=== PATIENT | male | born 1955 | race Caucasian/White ===

== ENCOUNTER 2019-07-19 20:47 | Observation (INO) ==
[2019-07-19] MEDS ORDERED: HYDROmorphone INJ 1 MG/ML SYRINGE IV STA ×2 (21:05→22:25)
[2019-07-19] MEDS ORDERED: LORazepam 1 MG/2 ML VIAL IV STA (21:05)
[2019-07-19 21:17] LABS: Basophils # (auto) 0.02 K/uL (0-0.2); Basophils % (auto) 0.1 %; Eosinophils # (auto) 0.06 K/uL (0-0.5); Eosinophils % (auto) 0.3 %; Hematocrit (blood only) 40.5 % (42-52); Hemoglobin 13.5 g/dL (14.0-18.0); Immature Granulocytes # (auto) 0.24 K/uL (0.00-0.02); Immature Granulocytes % (auto) 1.4 %; Lymphocytes # (auto) 1.86 K/uL (1.2-3.4); Lymphocytes % (auto) 10.6 %; Mean Corpuscular Hemoglobin 32.1 pg (25-34); Mean Corpuscular Hgb Conc 33.3 g/dL (32-36); Mean Corpuscular Volume 96.4 fL (80-100); Mean Platelet Volume 8.7 fL (7.4-10.4); Monocytes # (auto) 2.29 K/uL (0.11-0.59); Neutrophils # (auto) 13.16 K/uL (1.4-6.5); Neutrophils % (auto) 74.6 %; Platelet Count 296 K/uL (130-400); RDW Coefficient of Variation 13.7 % (11.5-14.5); RDW Standard Deviation 47.9 fL (36.4-46.3); White Blood Count 17.63 K/uL (4.8-10.8)
[2019-07-19 21:32] LABS: BUN Creatinine Ratio 16.9 (10-20); Calcium 9.3 mg/dl (8.5-10.1); Creatinine Clr Calc Pharmacy 64.8 ml/min; Est GFR (African American) 62.8; Est GFR (Non-African American) 54.2; Magnesium 1.9 mg/dl (1.8-2.4); Potassium 3.5 mmol/L (3.5-5.1)
--- NOTE | 2019-07-19 21:49 | XRay Report ---
XR hip LT 2V w pelvis CLINICAL HISTORY: hip/inguinal pain COMPARISON: None. DISCUSSION: No fractures or subluxations are visualized. There are no erosive or destructive changes. There are minor degenerative changes. There is a femoral head neck lump. This is a nonspecific findi ng which has been reported in femoral acetabular impingement syndrome IMPRESSION: 1. Mild degenerative change 2. No fractures identified Electronically signed by: Cj Higgins M.D. 07/19/2019 9:48 PM
[2019-07-19 22:16] LABS: Lyme Ab IgG w/WB Rflx Negative (Negative)
[2019-07-19] MEDS ORDERED: LORazepam 0.5 MG/1 ML VIAL IV STA (22:25)
[2019-07-19 22:26] LABS: Lyme Ab IgM w/WB Rflx Positive (Negative)
--- NOTE | 2019-07-20 00:07 | Emergency Department Note ---
Entered by Yamileth Gee acting as a scribe for Reginaldo Soto M.D. History of Present Illness General Chief complaint: Hip Pain Stated complaint: HIP PAIN, LEFT Time Seen by Provider: 07/19/19 20:54 Source: patient History of Present Illness Provider complaint: hip pain Onset (ago): hour(s) (this morning) Location: hip and left Radiation: extremity (back of left extremity) Pain Consistency: + constant Maximum Pain Intensity: 10 Relieved By: not by medication Associated symptoms: + other (-numbness/tingling, -abdominal pain, -testicular pain) The patient is a 63 year old male who presents to the Emergency Room with complaints of constant left hip pain that started this morning. The patient r eports that he has had a recent spasm in his right hip where they gave him a steroid injection several days ago. He mentions that he had a recent spasm in his right shoulder where he received a steroid injection. He reports that his left hip has worsened in pain since this morning. He notes that the pain radiates down the back of his leg. He denies any numbness or tingling. He denies any abdominal pain. He states that he takes Oxycodone for his chronic back pain, which he took today and did not alleviate his pain. He denies any testicular pain. He states that he has a history of IBS and lumbar stenosis. He mentions that he got a tick bite in his left inner thigh which was removed on Monday. Home Medications Home Medications Medication Instructions Recorded Confirmed Type allopurinol [Zyloprim] 300 mg PO DAILY 07/19/19 07/19/19 History amlodipine [Norvasc] 10 mg PO DAILY 07/19/19 07/19/19 History atorvastatin [Lipitor] 20 mg PO DAILY 07/19/19 07/19/19 History doxycycline hyclate 100 mg PO BID 07/19/19 07/19/19 History gabapentin 300 mg PO TID 07/19/19 07/19/19 History oxycodone 10 mg PO Q4 PRN 07/19/19 07/19/19 History sildenafil [Viagra] 100 mg PO UD PRN 07/19/19 07/19/19 History sulfasalazine [Azulfidine] 1,000 mg PO AMPM 07/19/19 07/19/19 History valacyclovir [Valtrex] 500 mg PO DAILY 07/19/19 07/19/19 History zolpidem [Ambien] 10 mg PO HS 07/19/19 07/19/19 History Allergies Allergy/AdvReac Type Severity Reaction Status Date / Time ibuprofen AdvReac can not Verified 07/19/19 22:29 take because of liver Past Med/Surg History Medical History Lumbar stenosis Social History Preferred Language: [place] Citizen Feels Safe at Home: Yes Smoking Status: Former smoker Review of Systems See HPI for pertinent positives & negatives. and A total of 10 systems reviewed and were otherwise negative Physical Exam Vital Signs Vital Signs - 24 hr 07/19/19 20:49 07/19/19 23:19 07/19/19 23:30 Temperature 36.7 C Temperature Source Oral Pulse Rate 72 Pulse Rate [Right Finger] 100 H 96 H Respiratory Rate 18 18 16 Respiratory Effort / Characteristics Respiratory Depth Normal Blood Pressure 167/90 H Blood Pressure [Left Arm] 188/92 H 179/94 H Blood Pressure Mean 115 Blood Pressure Mean [Left Arm] 124 122 Blood Pressure Position [Left Arm] Sitting Pulse Oximetry 96 93 88 L Oxygen Delivery Method Room Air Room Air Room Air Sepsis Recent Fever Within 48 Hours No Sepsis New/Unexplained Change in Mental Status No Sepsis Action Taken by Nursing No Action Required 07/20/19 01:00 Temperature Temperature Source Pulse Rate Pulse Rate [Right Finger] 100 H Respiratory Rate 18 Respiratory Effort / Characteristics Non-Labored Respiratory Depth Normal Blood Pressure Blood Pressure [Left Arm] 175/90 H Blood Pressure Mean Blood Pressure Mean [Left Arm] 118 Blood Pressure Position [Left Arm] Pulse Oximetry 94 Oxygen Delivery Method Room Air Sepsis Recent Fever Within 48 Hours Sepsis New/Unexplained Change in Mental Status Sepsis Action Taken by Nursing GENERAL: Awake, alert, appears uncomfortable in bed wincing in pain HENT: Normocephalic, atraumatic. EYES: Normal conjunctiva. Sclera non-icteric. RESPIRATORY: Clear to auscultation. Normal respiratory effort. CARDIAC: Normal rate. Normal rhythm. Extremities warm and well perfused. GI: Soft, non-distended. No tenderness to palpation. No rebound or guarding. No masses. RECTAL: Deferred. MUSCULOSKELETAL: Atraumatic. Chest examination reveals no tenderness.. L inguinal tenderness LOWER EXTREMITIES: Calves are equal size bilaterally and non-tender. No edema. Significant proximal left medial tenderness and left inguinal tenderness. No erythema. Pain with passive or active ROM of L hip. No lateral tenderness. NEURO: Normal sensorium. No sensory or motor deficits noted. No facial droop. SKIN: Warm and dry. No rash or jaundice noted. Course Course 2056: The patient was evaluated in room B4B, and a complete history and physical examination were performed. 2226: I reevaluated the patient and updated him on his results, he is still uncomfortable. 0039: I reevaluated the patient and updated him. 0100: I reviewed the patient's case with Dr. Weinstein- [facility] Hospitalist. He will evaluate the patient for further management. Administered Medications Discontinued Medications Doxycycline Hyclate (Vibramycin) 100 mg PO NOW STA Stop: 07/20/19 00:35 Last Admin: 07/20/19 00:45 Dose: 100 mg Documented by: [id number] Hydromorphone HCl (Dilaudid) 1 mg IV NOW STA Stop: 07/19/19 21:06 Last Admin: 07/19/19 21:18 Dose: 1 mg Documented by: [id number] Hydromorphone HCl (Dilaudid) 1 mg IV NOW STA Stop: 07/19/19 22:26 Last Admin: 07/19/19 22:57 Dose: 1 mg Documented by: [id number] Lorazepam (Ativan) 1 mg in 2 mls @ 2 mls/min IV NOW STA Stop: 07/19/19 21:06 Last Admin: 07/19/19 21:18 Dose: 2 mls/min Documented by: [id number] Lorazepam (Ativan) 0.5 mg in 1 mls @ 1 mls/min IV NOW STA Stop: 07/19/19 22:26 Last Admin: 07/19/19 22:58 Dose: 1 mls/min Documented by: [id number] Ketorolac Tromethamine (Toradol) 15 mg IV NOW STA Stop: 07/20/19 01:23 Last Admin: 07/20/19 01:25 Dose: 15 mg Documented by: [id number] Medical Decision Making Differential Diagnosis Differential diagnosis: Etiologies such as fracture, dislocation, neurovascular compromise, compartment syndrome, soft tissue injury, as well as others were entertained Medical Records Attestation: I reviewed the patient's medical records. Home Medications Current Medication List: was personally reviewed by me Laboratory Data Attestation: I reviewed the patient's lab results. Result diagrams: 07/19/19 21:04 07/19/19 21:04 Lab Results 07/19/19 07/19/19 07/19/19 Range/Units 21:04 21:04 21:04 WBC 17.63 H (4.8-10.8) K/uL RBC 4.20 L (4.7-6.1) M/uL Hgb 13.5 L (14.0-18.0) g/dL Hct 40.5 L (42-52) % MCV 96.4 (80-100) fL MCH 32.1 (25-34) pg MCHC 33.3 (32-36) g/dL RDW Std Deviation 47.9 H (36.4-46.3) fL RDW Coeff of [place] 13.7 (11.5-14.5) % Plt Count 296 (130-400) K/uL MPV 8.7 (7.4-10.4) fL Immature Gran % (Auto) 1.4 % Neut % (Auto) 74.6 % Lymph % (Auto) 10.6 % [place] % (Auto) 13.0 % Eos % (Auto) 0.3 % Baso % (Auto) 0.1 % Immature Gran # (Auto) 0.24 H (0.00-0.02) K/uL Neut # (Auto) 13.16 H (1.4-6.5) K/uL Lymph # (Auto) 1.86 (1.2-3.4) K/uL [place] # (Auto) 2.29 H (0.11-0.59) K/uL Eos # (Auto) 0.06 (0-0.5) K/uL Baso # (Auto) 0.02 (0-0.2) K/uL ESR (0-14) mm/hr Sodium 133 L (136-145) mmol/L Potassium 3.5 (3.5-5.1) mmol/L Chloride 102 (98-107) mmol/L Carbon Dioxide 24 (21-32) mmol/L Anion Gap 8.0 (3-11) BUN 23 H (7-18) mg/dl Creatinine 1.36 (0.6-1.4) mg/dl Est Cr Clr Drug Dosing 64.8 ml/min Est GFR ( Amer) 62.8 Est GFR (Non-Af Amer) 54.2 BUN/Creatinine Ratio 16.9 (10-20) Glucose 144 H (70-99) mg/dl Calcium 9.3 (8.5-10.1) mg/dl Magnesium 1.9 (1.8-2.4) mg/dl Total Bilirubin 0.8 (0.2-1) mg/dl Direct Bilirubin 0.2 (0-0.2) mg/dl AST 15 (15-37) U/L ALT 33 (12-78) U/L Alkaline Phosphatase 74 (45-117) U/L Total Protein 7.8 (6.4-8.2) gm/dl Albumin 4.1 (3.4-5.0) gm/dl Lyme Disease IgG Ab Negative (Negative) Lyme Disease IgM Ab Positive A (Negative) 07/19/19 Range/Units 21:04 WBC (4.8-10.8) K/uL RBC (4.7-6.1) M/uL Hgb (14.0-18.0) g/dL Hct (42-52) % MCV (80-100) fL MCH (25-34) pg MCHC (32-36) g/dL RDW Std Deviation (36.4-46.3) fL RDW Coeff of [place] (11.5-14.5) % Plt Count (130-400) K/uL MPV (7.4-10.4) fL Immature Gran % (Auto) % Neut % (Auto) % Lymph % (Auto) % [place] % (Auto) % Eos % (Auto) % Baso % (Auto) % Immature Gran # (Auto) (0.00-0.02) K/uL Neut # (Auto) (1.4-6.5) K/uL Lymph # (Auto) (1.2-3.4) K/uL [place] # (Auto) (0.11-0.59) K/uL Eos # (Auto) (0-0.5) K/uL Baso # (Auto) (0-0.2) K/uL ESR 23 H (0-14) mm/hr Sodium (136-145) mmol/L Potassium (3.5-5.1) mmol/L Chloride (98-107) mmol/L Carbon Dioxide (21-32) mmol/L Anion Gap (3-11) BUN (7-18) mg/dl Creatinine (0.6-1.4) mg/dl Est Cr Clr Drug Dosing ml/min Est GFR ( Amer) Est GFR (Non-Af Amer) BUN/Creatinine Ratio (10-20) Glucose (70-99) mg/dl Calcium (8.5-10.1) mg/dl Magnesium (1.8-2.4) mg/dl Total Bilirubin (0.2-1) mg/dl Direct Bilirubin (0-0.2) mg/dl AST (15-37) U/L ALT (12-78) U/L Alkaline Phosphatase (45-117) U/L Total Protein (6.4-8.2) gm/dl Albumin (3.4-5.0) gm/dl Lyme Disease IgG Ab (Negative) Lyme Disease IgM Ab (Negative) Imaging Data Radiologist's Impression: Radiology results as stated below per my review and the radiologist's interpretation: XR hip LT 2V w pelvis CLINICAL HISTORY: hip/inguinal pain COMPARISON: None. DISCUSSION: No fractures or subluxations are visualized. There are no erosive or destructive changes. There are minor degenerative changes. There is a femoral head neck lump. This is a nonspecific finding which has been reported in femoral acetabular impingement syndrome IMPRESSION: 1. Mild degenerative change 2. No fractures identified Electronically signed by: Cj Higgins M.D. 07/19/2019 9:[address] LEFT HIP No acute fracture or dislocation. Colonic diverticula. Heterogeneous prostate. Radiologist: Stefan Clayton M.D. Study ready at 231 and initial results transmitted at [id number]. Blood Pressure Blood Pressure Findings: Elevated blood pressure Blood Pressure Disposition: further management by hospitalist ERNIE Harris Patient is a 63-year-old gentleman presenting today complaining of atraumatic left hip and groin pain. Again no trauma is reported. No fevers reported. Neurovascular intact. Patient with a history of lumbar spinal stenosis and other musculoskeletal pains presenting today with onset this morning of continuous severe left inguinal pain worsening throughout the day. A little bit of radiation to the back of his left thigh. No numbness in the left leg. Chronically on opioids regularly but pain is breaking through that now severely in the left hip but more left inguinal area. No testicular pain. No abdominal tenderness. Tenderness along the inner proximal left thigh along the inguinal ligament. No fluctuance or erythema here. Primarily receives care with doctors in [facility]. Electrolytes were checked. Family wonder if he may possibly be suffering from Lyme disease and that this was sent. It was only later they stated he is already on treatment doxycycline. Lower suspicion for intra- abdominal pathology and I doubt acute diverticulitis, appendicitis, testicular torsion, he UTI, or colitis. Patient's symptoms seem more muscular skeletal in nature. X-ray of the left hip was obtained without evidence of acute significant bony injury such as fracture dislocation. Given some Ativan and Dilaudid for symptom control initially. Laboratory studies show no significant electrolyte abnormalities. Leukocytosis of 17 is noted however the patient is on chronic steroids and recently finished a steroid burst. I doubt this represents septic joint. ESR minimally elevated. Patient again is afebrile he does not report any fevers. X-ray is noted to show no fractures and degenerative change possibly findings suggestive of a femoral acetabular impingement syndrome. Discussed with patient who on reexamination begin a return of symptoms for digital medication given. Lyme screen positive IgM. Given his concern about tick exposure will start a course of doxycycline. CT the hip was completed with out significant acute pathology noted. Reevaluated the patient and seems slightly under the effects of the narcotics. Still with s ignificant pain with range of motion unable to ambulate. Discussed with family the patient given the multiple medications were tried do not see how the patient go home at this time. Is not able to ambulate. They do also relate that the patient started doxycycline several days ago. Discussed with him options of trying to go home versus observation here for better pain control possible physical therapy or orthopedic evaluation. Again I do not see any evidence of acute intra-abdominal pathology. Palpable pulses and no signs of infection of the left lower extremity. Patient is already on a combination of Flexeril, oxycodone, gabapentin, and steroids at home. Discussed with patient and was agreeable to trial of Toradol. Discussed with the hospitalist who reviewed the case. UA/UDS ordered. Impression & Plan Left hip pain, Inability to ambulate due to hip Discharge Plan Visit Data Chief Complaint: Hip Pain Stated Complaint: HIP PAIN, LEFT ED Provider: Reginaldo Soto Discharge Problem: Left hip pain, Inability to ambulate due to hip Patient Disposition: Being Evaluated by Hospitalist Forms Stand Alone Forms: [facility] Prescriptions Prescriptions: No Action doxycycline hyclate 100 mg capsule 100 mg PO BID RF: 0 atorvastatin [Lipitor] 20 mg tablet 20 mg PO DAILY RF: 0 sulfasalazine [Azulfidine] 500 mg tablet 1,000 mg PO AMPM RF: 0 valacyclovir [Valtrex] 500 mg tablet 500 mg PO DAILY RF: 0 sildenafil [Viagra] 100 mg tablet 100 mg PO UD PRN (Reason: Sexual Activity) RF: 0 amlodipine [Norvasc] 10 mg tablet 10 mg PO DAILY RF: 0 gabapentin 300 mg capsule 300 mg PO TID RF: 0 allopurinol [Zyloprim] 300 mg tablet 300 mg PO DAILY RF: 0 zolpidem [Ambien] 10 mg tablet 10 mg PO HS RF: 0 oxycodone 10 mg tablet 10 mg PO Q4 PRN (Reason: Pain) RF: 0 Referrals Referrals: PCP,NO [Primary Care Provider] - The scribe's documentation has been prepared under my direction and personally reviewed by me in its entirety. I confirm that the note above accurately reflects all work, treatment, procedures, and medical decision making performed by me.
[2019-07-20] MEDS ORDERED: DOXYCYCLINE HYCLATE 100 MG CAP PO STA (00:34)
[2019-07-20 01:09] LABS: Albumin Level 4.1 gm/dl (3.4-5.0); Bilirubin Direct 0.2 mg/dl (0-0.2); Bilirubin,Total 0.8 mg/dl (0.2-1); Total Protein 7.8 gm/dl (6.4-8.2)
[2019-07-20] MEDS ORDERED: KETOROLAC TROMETHAMINE 15 MG/ML VIAL IV STA (01:22)
[2019-07-20 01:49] LABS: Appearance Urine Clear (Clear); Bilirubin Urine Negative (Negative); Blood Urine Negative (Negative); Color Urine Dark Yellow; Glucose Urine UA Negative (Negative); Ketones Urine Negative (Negative); Leukocyte Esterase Urine Negative (Negative); Nitrite Urine Negative (Negative); Protein Urine Negative (Negative); Specific Gravity Urine 1.019 (1.000-1.030); Urobilinogen Urine Negative (Negative)
[2019-07-20] MEDS ORDERED: METOPROLOL TARTRATE 1 MG/ML VIAL IV STA (02:01)
[2019-07-20 02:07] LABS: Amphetamines+Metham, Urine Neg (Neg); Barbiturates, Urine Neg (Neg); Benzodiazepine, Urine Neg (Neg); Cocaine, Urine Pos (Neg); MDMA (Ecstacy), Urine Neg (Neg); Methadone, Urine Neg (Neg); Opiate, Urine Pos (Neg); Phencyclidine, Urine Neg (Neg)
--- NOTE | 2019-07-20 02:11 | History & Physical Report ---
Date of Service July 20, 2019 Assessment & Plan (1) Left hip pain: Left hip and groin pain Potential causes include pain referred from lumbar disc disease, Lyme disease, possible prostatitis, nonspecific joint inflammation and others. Received 2 doses of Dilaudid 1 mg IV in ED with no improvement in symptoms. Would not give any further doses of IV narcotics. Acetaminophen 650 mg p.o. every 6 hours as needed mild pain or temperature Toradol 30 mg IV every 6 hours as needed breakthrough pain. Oxycodone 10 mg p.o. every 6 hours as needed severe pain, as per outpatient. Consult orthopedics on-call for their opinion. Present on Admission?: Yes (2) Lyme disease: Was started on doxycycline 100 mg p.o. twice daily a few days ago. Lyme testing here confirms IgM positive, with IgG negative, and Western blot will now be pending. Continue doxycycline 100 mg p.o. twice daily. Placed on ceftriaxone 2 g IV daily to cover arthritis and potential prostatitis. Add anaplasmosis testing due to severity of generalized symptoms and joint pains. Patient reports that he has live out of the [facility], and he and his have had several ticks on their body throughout the summer. Present on Admission?: Yes (3) Gout: Continue allopurinol 300 mg p.o. daily. Present on Admission?: Yes (4) Hypertension: Continue amlodipine 10 mg p.o. daily. Give Lopressor 5 mg IV x1 while in the ED. Present on Admission?: Yes (5) Radiculopathy due to disorder of intervertebral disc of lumbar spine: Patient reports history of L4/L5 degenerative disc disease and left lower extremity radiculopathy. He reports having a pending appointment with an orthopedist back home in [place]. Present on Admission?: Yes (6) Chronic pain syndrome: Continue medications as above. Present on Admission?: Yes (7) Insomnia: Continue zolpidem 10 mg p.o. at bedtime as needed Present on Admission?: Yes (8) Hyperlipidemia: Continue atorvastatin 20 mg p.o. daily Present on Admission?: Yes History of Present Illness Chief Complaint: The patient presents to the emergency department with left hip pain. Primary Care Provider: NO PCP The patient is a 63-year-old male with a past medical history including lumbar degenerative disc disease, gout, hypertension, hyperlipidemia, chronic pain syndrome and insomnia who presents to the emergency department with severe left hip pain. He reports that he has had a recent injection into his right hip which relieved the pain there, and his reports he had Flexeril injections in the bilateral upper thoracic areas that relieved that pain as well. He is traveled here from [facility] for the holidays, and this morning developed the severe left hip pain. He denies any heavy lifting or other mechanical involvements, and denies trauma. His main change activity is riding in a car from [facility] a few days ago. He does report chronic urinary frequency and dysuria over the past 3 to 4 years. Allergies Allergy/AdvReac Type Severity Reaction Status Date / Time ibuprofen AdvReac can not Verified 07/19/19 22:29 take because of liver Home Medications Home Medications Medication Instructions Recorded Confirmed Type allopurinol [Zyloprim] 300 mg PO DAILY 07/19/19 07/19/19 History amlodipine [Norvasc] 10 mg PO DAILY 07/19/19 07/19/19 History atorvastatin [Lipitor] 20 mg PO DAILY 07/19/19 07/19/19 History doxycycline hyclate 100 mg PO BID 07/19/19 07/19/19 History gabapentin 300 mg PO TID 07/19/19 07/19/19 History oxycodone 10 mg PO Q4 PRN 07/19/19 07/19/19 History sildenafil [Viagra] 100 mg PO UD PRN 07/19/19 07/19/19 History sulfasalazine [Azulfidine] 1,000 mg PO AMPM 07/19/19 07/19/19 History valacyclovir [Valtrex] 500 mg PO DAILY 07/19/19 07/19/19 History zolpidem [Ambien] 10 mg PO HS 07/19/19 07/19/19 History Past Med/Surg History Medical History Lumbar stenosis Social History Preferred Language: Romanian Feels Safe at Home: Yes Smoking Status: Former smoker Review of Systems Review of Systems: The patient denies chest pain, palpitations, shortness of breath, dyspnea on exertion, cough, lower extremity swelling, sore throat, fevers, chills, sweats, weight change, fatigue, nausea, vomiting, diarrhea , constipation, abdominal pain, pelvic pain, blood in urine or stool, dysuria, urinary frequency or urgency, lightheadedness, dizziness, headache, memory loss, loss of consciousness, rash, abnormal bruising or bleeding, or night sweats. The review of systems is otherwise negative other than for that already noted above, and at least 10 systems have been reviewed. Physical Exam Physical Exam: The patient is awake, alert and oriented 3, well developed and well nourished, normocephalic and atraumatic, lying in bed and in no acute distress. HEENT--PERRL, EOMI, mucous membranes and oropharynx normal. Neck--supple. No JVD. No bruits. Thyroid normal, trachea midline, no adenopathy. Heart--normal S1 and S2. No murmurs, rubs or gallops. Lungs--clear bilaterally, no respiratory distress, no accessory muscle use. Abdomen--normal bowel sounds and soft. Nontender. Nondistended, mildly tympanitic. No hernias or masses, no organomegaly. No reproducible pain Extremities--no cyanosis or clubbing. No edema. There are good distal pulses b/l. Dermatologic--normal skin turgor, normal color, no abnormal lymph nodes, no rash. Neurologic--cranial nerves II through XII grossly intact. Rheumatologic--limited due to pain left hip and groin. Psychiatric--normal affect. Results & Data Vital Signs (Past 12 Hours) Vital Signs Temp Pulse Pulse Resp BP BP Pulse Ox 07/20/19 02:05 104 H 175/90 H 07/20/19 01:00 100 H 18 175/90 H 94 07/19/19 23:30 96 H 16 179/94 H 88 L 07/19/19 23:19 100 H 18 188/92 H 93 07/19/19 20:49 98.1 F 72 18 167/90 H 96 Laboratory Results Laboratory Results WBC 17.63 K/uL (4.8-10.8) H 07/19/19 21:04 RBC 4.20 M/uL (4.7-6.1) L 07/19/19 21:04 Hgb 13.5 g/dL (14.0-18.0) L 07/19/19 21:04 Hct 40.5 % (42-52) L 07/19/19 21:04 MCV 96.4 fL (80-100) 07/19/19 21:04 MCH 32.1 pg (25-34) 07/19/19 21:04 MCHC 33.3 g/dL (32-36) 07/19/19 21:04 RDW Std Deviation 47.9 fL (36.4-46.3) H 07/19/19 21:04 RDW Coeff of Wayne 13.7 % (11.5-14.5) 07/19/19 21:04 Plt Count 296 K/uL (130-400) 07/19/19 21:04 MPV 8.7 fL (7.4-10.4) 07/19/19 21:04 Immature Gran % (Auto) 1.4 % 07/19/19 21:04 Neut % (Auto) 74.6 % 07/19/19 21:04 Lymph % (Auto) 10.6 % 07/19/19 21:04 Towner % (Auto) 13.0 % 07/19/19 21:04 Eos % (Auto) 0.3 % 07/19/19 21:04 Baso % (Auto) 0.1 % 07/19/19 21:04 Immature Gran # (Auto) 0.24 K/uL (0.00-0.02) H 07/19/19 21:04 Neut # (Auto) 13.16 K/uL (1.4-6.5) H 07/19/19 21:04 Lymph # (Auto) 1.86 K/uL (1.2-3.4) 07/19/19 21:04 Towner # (Auto) 2.29 K/uL (0.11-0.59) H 07/19/19 21:04 Eos # (Auto) 0.06 K/uL (0-0.5) 07/19/19 21:04 Baso # (Auto) 0.02 K/uL (0-0.2) 07/19/19 21:04 ESR 23 mm/hr (0-14) H 07/19/19 21:04 Sodium 133 mmol/L (136-145) L 07/19/19 21:04 Potassium 3.5 mmol/L (3.5-5.1) 07/19/19 21:04 Chloride 102 mmol/L (98-107) 07/19/19 21:04 Carbon Dioxide 24 mmol/L (21-32) 07/19/19 21:04 Anion Gap 8.0 (3-11) 07/19/19 21:04 BUN 23 mg/dl (7-18) H 07/19/19 21:04 Creatinine 1.36 mg/dl (0.6-1.4) 07/19/19 21:04 Est Cr Clr Drug Dosing 64.8 ml/min 07/19/19 21:04 Est GFR ( Amer) 62.8 07/19/19 21:04 Est GFR (Non-Af Amer) 54.2 07/19/19 21:04 BUN/Creatinine Ratio 16.9 (10-20) 07/19/19 21:04 Glucose 144 mg/dl (70-99) H 07/19/19 21:04 Calcium 9.3 mg/dl (8.5-10.1) 07/19/19 21:04 Magnesium 1.9 mg/dl (1.8-2.4) 07/19/19 21:04 Total Bilirubin 0.8 mg/dl (0.2-1) 07/19/19 21:04 Direct Bilirubin 0.2 mg/dl (0-0.2) 07/19/19 21:04 AST 15 U/L (15-37) 07/19/19 21:04 ALT 33 U/L (12-78) 07/19/19 21:04 Alkaline Phosphatase 74 U/L (45-117) 07/19/19 21:04 Total Protein 7.8 gm/dl (6.4-8.2) 07/19/19 21:04 Albumin 4.1 gm/dl (3.4-5.0) 07/19/19 21:04 Urine Color Dark Yellow 07/20/19 01:41 Urine Appearance Clear (Clear) 07/20/19 01:41 Urine pH 7.0 (4.5-7.5) 07/20/19 01:41 Ur Specific [place] 1.019 (1.000-1.030) 07/20/19 01:41 Urine Protein Negative (Negative) 07/20/19 01:41 Urine Glucose (UA) Negative (Negative) 07/20/19 01:41 Urine Ketones Negative (Negative) 07/20/19 01:41 Urine Blood Negative (Negative) 07/20/19 01:41 Urine Nitrite Negative (Negative) 07/20/19 01:41 Urine Bilirubin Negative (Negative) 07/20/19 01:41 Urine Urobilinogen Negative (Negative) 07/20/19 01:41 Ur Leukocyte Esterase Negative (Negative) 07/20/19 01:41 Urine Opiates Screen Pos (Neg) H 07/20/19 01:41 Ur Methadone, Qual Neg (Neg) 07/20/19 01:41 Urine Barbiturates Neg (Neg) 07/20/19 01:41 Ur Phencyclidine (PCP) Neg (Neg) 07/20/19 01:41 U Amphetamin/Meth Scrn Neg (Neg) 07/20/19 01:41 MDMA (Ecstasy) Screen Neg (Neg) 07/20/19 01:41 U Benzodiazepines Scrn Neg (Neg) 07/20/19 01:41 Ur Cocaine Metabolite Pos (Neg) H 07/20/19 01:41 U Marijuana (THC) Screen Neg (Neg) 07/20/19 01:41 Lyme Disease IgG Ab Negative (Negative) 07/19/19 21:04 Lyme Disease IgM Ab Positive (Negative) A 07/19/19 21:04 Diagnostic Findings [place] [phone] XRay Report Patient: ANANT DUNLAP Date: 07/19/19 MR#: [id number]: [address] [facility] Acct ID:[id number]: Date: [address] [place] [address] Zip: [place] [address] Age: 63Location: ED Sex: M Room/Bed: Att Phy:Diagnosis: HIP PAIN, LEFT Nadya Phy: PCP,NOService Date: 07/19/19 Fam Phy:Interpreting Phy: Cj Higgins MD Admit Phy: Ordering Phy: Reginaldo Soto M.D. cc: ~ XR hip LT 2V w pelvis CLINICAL HISTORY: hip/inguinal pain COMPARISON: None. DISCUSSION: No fractures or subluxations are visualized. There are no erosive or destructive changes. There are minor degenerative changes. There is a femoral head neck lump. This is a nonspecific finding which has been reported in femoral acetabular impingement syndrome IMPRESSION: 1. Mild degenerative change 2. No fractures identified Electronically signed by: Cj Higgins M.D. 07/19/2019 9:48 PM Dictated: 07/19/192146 Transcribed: 07/19/192146 [facility] Patient: ANANT DUNLAP (Male) : 51 test: [id number] Status: ER Date: 07/19/19 23:15 Room #: History: LEFT HIP PAIN TO INGUINAL Slices: [id number] Priors: Tech: Wayne Cortez @ [phone] Exams: CT LEFT HIP Accession Numbers: [id number] Preliminary Findings Only See Final Report For Complete Findings CT LEFT HIP: No acute fracture or dislocation. Colonic diverticula. Heterogeneous prostate. Radiologist: Stefan Clayton M.D. Study ready at 23:18 and initial results transmitted at 23:38 *This report constitutes a preliminary interpretation only. Non-acute findings felt to be unrelated to the clinical presentation may not be discussed in this report. The study will be interpreted and a final report will be generated by the local Radiologist the following shift. To reach the hospital radiology department call [phone]. If a discrepancy is found between the preliminary and final interpretations of this study, please notify us via our Client Portal at [email or web address] under QA Exams.You can also fax this report with a description of the discrepancy, or include the final report, to our daytime fax number [phone].If faxing, please indicate the severity of discrepancy using one of the following categories: [ ] 1 - Agree/Informational [ ] 2 - Unlikely to Affect Management [ ] 3 - Possible Eventual Change of Management [ ] 4 - Probable Immediate Change of Management For all other patient related information, please fax us at [phone]. [id number] Code Status & VTE Plan Code Status Full code PG Care Time/CCT Total # of Minutes Spent Total Time Spent with Patient: Total time spent is greater than 50% in coordination of care (as documented) at patient's floor/unit and/or counseling patient:
[2019-07-20] MEDS ORDERED: cefTRIAXone SODIUM 2,000 MG/70 ML BAG IV STA (02:32)
[2019-07-20] MEDS ORDERED: MAGNESIUM HYDROXIDE SUSP 30 ML UDC PO PRN (03:16)
[2019-07-20] MEDS ORDERED: ALUMINUM/MAGNESIUM SUSP 30 ML UDC PO PRN (03:16)
[2019-07-20] MEDS ORDERED: ACETAMINOPHEN 325 MG TAB PO PRN (03:16)
[2019-07-20] MEDS ORDERED: ONDANSETRON INJ 2 MG/ML 2 ML VIAL IV PRN (03:16)
[2019-07-20] MEDS ORDERED: OXYCODONE HCL IR 5 MG TAB (IMMEDIATE RELEASE) PO PRN (03:16)
[2019-07-20] MEDS ORDERED: KETOROLAC 30 MG/ML VIAL IV PRN (03:16)
[2019-07-20] MEDS ORDERED: ZOLPIDEM TARTRATE 10 MG TAB PO PRN (03:16)
[2019-07-20] MEDS ORDERED: ZOLPIDEM TARTRATE 10 MG TAB PO ONE (03:19)
[2019-07-20] MEDS ORDERED: OXYCODONE HCL IR 5 MG TAB (IMMEDIATE RELEASE) ONE (03:19)
--- NOTE | 2019-07-20 05:54 | CT Scan Report ---
CT hip LT wo con CT DOSE: 364.87 mGy.cm HISTORY: Pain Pain hip to inguinal TECHNIQUE: Multiaxial CT images of the left hip were performed and reformatted in the sagittal and co angela plane without the use of contrast. A dose lowering technique was utilized adhering to the prin ciples of STEPHANIE. COMPARISON: None. FINDINGS: Mild degenerative change. Minimal acetabular protrusion. No evidence for fracture or dislocation. Surrounding soft tissues are unremarkable. IMPRESSION: Mild degenerative change. No acute process. The above report was generated using voice recognition software. It may contain grammatical, syntax or spelling errors. Electronically signed by: James Butler M.D. 07/20/2019 5:53 AM
[2019-07-20] MEDS ORDERED: sulfaSALAzine 500 MG TABLET PO SCH (09:00)
[2019-07-20] MEDS ORDERED: VALACYCLOVIR HCL 500 MG TABLET PO SCH (09:00)
[2019-07-20] MEDS ORDERED: AMLODIPINE BESYLATE 5 MG TAB PO SCH (09:00)
[2019-07-20] MEDS ORDERED: DOXYCYCLINE HYCLATE 100 MG CAP PO SCH (09:00)
[2019-07-20] MEDS ORDERED: ALLOPURINOL 300 MG TAB PO SCH (09:00)
[2019-07-20] MEDS ORDERED: ATORVASTATIN 20 MG TAB PO SCH (09:00)
[2019-07-20] MEDS ORDERED: GABAPENTIN 300 MG CAP PO SCH (09:00)
[2019-07-20] MEDS ORDERED: methylPREDNISolone 60 MG in SYRINGE 0 ML IV ONE (11:15)
[2019-07-20 11:31] LABS: Hematocrit (blood only) 38.5 % (42-52); Mean Corpuscular Hemoglobin 31.8 pg (25-34); Mean Corpuscular Hgb Conc 33.8 g/dL (32-36); Mean Corpuscular Volume 94.1 fL (80-100); Mean Platelet Volume 8.8 fL (7.4-10.4); Platelet Count 238 K/uL (130-400); RDW Coefficient of Variation 13.5 % (11.5-14.5); RDW Standard Deviation 46.4 fL (36.4-46.3); Red Blood Count 4.09 M/uL (4.7-6.1); White Blood Count 16.09 K/uL (4.8-10.8)
[2019-07-20 11:55] LABS: BUN Creatinine Ratio 14.2 (10-20); Creatinine Clr Calc Pharmacy 84.7 ml/min; Est GFR (African American) 86.9; Potassium 3.8 mmol/L (3.5-5.1)
--- NOTE | 2019-07-20 17:50 | Discharge Summary ---
Date of Service July 20, 2019 Admission HPI Per Admitting Provider The patient is a 63-year-old male with a past medical history including lumbar degenerative disc disease, gout, hypertension, hyperlipidemia, chronic pain syndrome and insomnia who presents to the emergency department with severe left hip pain. He reports that he has had a recent injection into his right hip which relieved the pain there, and his reports he had Flexeril injections in the bilateral upper thoracic areas that relieved that pain as well. He is traveled here from [facility] for the holidays, and this morning developed the severe left hip pain. He denies any heavy lifting or other mechanical involvements, and denies trauma. His main change activity is riding in a car from [facility] a few days ago. He does report chronic urinary frequency and dysuria over the past 3 to 4 years. Principal Diagnosis Hip Flexor Strain vs Low Back Radiculopathy Discharge Exam Constitutional WD/WN, vitals as above Eyes + anicteric sclerae; no conjunctival abnormality ENMT Ears: no hearing impairment Neck trachea midline Respiratory normal respiratory effort, lungs clear to auscultation Cardiovascular RRR, no murmur, no edema Gastrointestinal (Abdomen) Inspection/Auscultation: normal bowel sounds Percussion/Palpation: abdomen soft; abdomen nontender Musculoskeletal Head/Neck/Chest: normocephalic and head atraumatic reproducible pain with straight leg flexion of LLE that isolates to groin; No tenderness to palp of hip joint or groin region; difficulty with active elevation of LLE but adequate with passive movement however and can get good flexion before pain is illicited Skin no rashes, warm and dry Neurologic moves all extremities Psychiatric A+Ox3, euthymic affect Genitourinary no hernia (no obvious L inguinal abnormality appreciated) Discharge Data Allergies Allergy/AdvReac Type Severity Reaction Status Date / Time ibuprofen AdvReac can not Verified 07/19/19 22:29 take because of liver Consultations 07/20/19 01:22 ED Decision to Admit Stat 07/20/19 03:16 Consult Case Management - Discharge Planning Routine Ordered Studies 07/19/19 22:26 CT hip LT wo con Stat Hospital Course (1) Left hip pain: - Rather chronic issue - possibly arthritic in nature and has been on Medrol dosepaks as outpatient - Pain seems to locate to groin region with no palpable inguinal hernia or palpable tenderness - possibly hip flexor strain but does report intermittent radiculopathy from this site so possible low back etiology - Follows with providers in [place] for his low back who is considering decompression in near future - Joint is not warm to touch or tender and does not support septic joint - WBC likely related to oral steroid use - Continue Oxycodone PRN and will prescribe Dosepak; has F/U with pain management/orthopedics in [place] this week - Discussed with our Orthopedics - did cancel initial consultation as patient would like to return home and follow up as his pain is more manageable at this time (2) Lyme disease: - Was started on Doxycycline 100 mg BID a couple days ago after having a tick removed - IgM positive and IgG negative but Western Blot is pending; Can continue Doxycyline 100 mg BID but symptoms likely do not correlate with a lyme arthralgia (3) Gout: - No evidence of an acute fliar; Continue Allopurinol 300 mg daily. (4) Hypertension: - Continue Norvasc 10 mg daily (5) Radiculopathy due to disorder of intervertebral disc of lumbar spine: - H/O L4/L5 DDD and LLE Radiculopathy and is due to see orthopedist back home this week (6) Chronic pain syndrome: - As discussed above - to see pain management at home (7) Insomnia: - Zolpidem 10 mg HS PRN (8) Hyperlipidemia: - Is on Atorvastatin 20 mg daily - Did call the patient as he was discharged to ask him to discuss with his doctors back home as possible this could be contributing as he has related some b/l issues with hip regions/shoulder region; a CK was not drawn during the admission and length of use of this medication is unknown. Left a message on patient's cell phone voicemail to discuss with his family doctor/orthopedic about whether this could be contributing Total Time Total Time Spent Total Time Spent (In Minutes): Greater than 30 minutes Discharge Plan Discharge Items Patient Disposition: Home - Self-Care Reason For Visit: SEVERE LEFT HIP PAIN,LYME DISEASE Discharge Diagnosis: Left Hip Pain Activity: Resume your previous activity Non-emergency contact: Primary Care Provider Call non-emergency contact if: you have any medication questions, your symptoms worsen and you have a fever Follow-up/Referrals: PCP,NO [Primary Care Provider] - Diet: Regular Addtl Attending Provider Instructions: Left Hip Pain: - This is possibly from either your hip flexor vs even the lower back. Recommend to keep your appointments with your doctors back home to further evaluate. - Will continue with a Medrol Dosepak again to try and further alleviate the discomfort. Continue your Flexeril as needed. This is a muscle relaxer and can m jessica you sleepy so be mindful of that - Can continue Tylenol as needed for milder discomfort. Lyme Disease: - Your IgM is positive for Lyme but your IgG is negative. This could be a false positive so a Western blot test which is more accurate for this was sent out. It can take a few days to result. We can call you if this is positive. However, you are on Doxycyline and can continue the treatment for this as this is the medication used with Lyme Disease Pending Studies at Discharge: Yes (Western Blot) Stand-Alone Forms: My [facility], Opioid Pain Management, Smoking Cessation Medications and DC Order Prescriptions: New methylprednisolone 4 mg tablets,dose pack 4 mg PO USEASDIRECTD 6 Days Qty: 21 RF: 0 Continued atorvastatin [Lipitor] 20 mg tablet 20 mg PO DAILY RF: 0 sulfasalazine [Azulfidine] 500 mg tablet 1,000 mg PO AMPM RF: 0 valacyclovir [Valtrex] 500 mg tablet 500 mg PO DAILY RF: 0 sildenafil [Viagra] 100 mg tablet 100 mg PO UD PRN (Reason: Sexual Activity) RF: 0 amlodipine [Norvasc] 10 mg tablet 10 mg PO DAILY RF: 0 gabapentin 300 mg capsule 300 mg PO TID RF: 0 allopurinol [Zyloprim] 300 mg tablet 300 mg PO DAILY RF: 0 zolpidem [Ambien] 10 mg tablet 10 mg PO HS RF: 0 doxycycline hyclate 100 mg capsule 100 mg PO BID 10 Days Qty: 20 RF: 0 oxycodone 10 mg tablet 10 mg PO Q4 PRN (Reason: Pain) 3 Days Qty: 10 RF: 0 Discharge Orders: Discharge Order (Routine); Ordered 07/20/19 Ordered By: Carmen Pardo/Other Patient Handouts: Hip How Works, ED Lyme Disease Admission Data Admit Date/Time: 07/20/19 02:08 Attending Provider: Shon Michele Admit Provider: Richmond Weinstein Primary Care Provider: PCP,NO Other Providers: Richmond Weinstein Other Interventions: Discharge Summary Assessment (RN) Last Done: 07/20/19 13:14 DC Date/Time DO NOT enter until pt leaves facility: 07/20/19 13:47 Supervising Physician Co-Signing Physician Notes Attending note: patient seen and examined with Carmen García PA-C. I agree with her discharge summary. I personally reviewed the labs and imaging findings. 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
[2019-07-21] MEDS ORDERED: cefTRIAXone SODIUM 2,000 MG/70 ML BAG IV SCH (02:00)
[2019-07-22 10:05] LABS: Cocaine, Urine 2890 NG/ML (CUTOFF=100); Codeine Urine NEGATIVE NG/ML (CUTOFF=50); Hydrocodone Urine NEGATIVE NG/ML (CUTOFF=50); Hydromor Urine 957 NG/ML (CUTOFF=50); Morphine Urine NEGATIVE NG/ML (CUTOFF=50); Norhydrocodone Conf Ur NEGATIVE NG/ML (CUTOFF=50); Noroxycodone Urine 3960 NG/ML (CUTOFF=50); Oxycodone Urine 965 NG/ML (CUTOFF=50); Oxymorph Urine 846 NG/ML (CUTOFF=50)
[2019-07-24 10:48] LABS: 41KDIGG Band REACTIVE; Lyme Antibodies, WB IgG NEGATIVE
[2019-07-24 10:49] LABS: 18KDIGG Band Non-Reactive; 23KDIGG Band Non-Reactive; 23KDIGM Band REACTIVE; 28KDIGG Band Non-Reactive; 30KDIGG Band Non-Reactive; 39KDIGG Band Non-Reactive; 39KDIGM Band Non-Reactive; 45KDIGG Band Non-Reactive; 58KDIGG Band Non-Reactive; 66KDIGG Band Non-Reactive; 93KDIGG Band Non-Reactive
[2019-07-24 10:50] LABS: Lyme Antibodies, WB IgM NEGATIVE
[2019-07-24 10:51] LABS: 41KDIGM Band Non-Reactive
== END 2019-07-20 13:47 | disposition home or self-care (01) ==
LOC: 3W 20:47 → ED 20:47 → SUATTDRO 07-20 02:08 → 3W 07-20 02:30